=== PATIENT | female | born 1965 | race Caucasian/White ===

== ENCOUNTER 2019-04-15 10:03 | Outpatient (CLI) | payer OTHER | END 2019-04-15 10:04 | disposition home or self-care (01) | LOC: CTENTCT 10:03 | PROVIDERS: ATTEND Otolaryngology Plastic Surgery within the Head & Neck | DX: J01.81 Other acute recurrent sinusitis (principal) | CPT/HCPCS: 70486 ==

== ENCOUNTER 2023-08-05 08:28 | Outpatient (CLI) | payer BC | END 2023-08-05 08:29 | disposition home or self-care (01) | LOC: SCSMRI 08:28 | PROVIDERS: ATTEND Neurological Surgery | DX: M51.36 Other intervertebral disc degeneration, lumbar region (principal) | CPT/HCPCS: 72157; 72158 ==